=== PATIENT | male | born 1955 | race Caucasian/White ===

== ENCOUNTER 2018-09-03 06:38 | Day surgery (SDC) | payer OTHER ==
[~2018-09-03] VITALS: Ht 182.9 cm; Wt 110.5 kg
[~2018-09-03 06:38] MED LIST: ALPR.25 PO; CYAN500 PO; EXCEDRIN MIGRAINE PO; FISH OIL PO; FURO40 PO; Flonase 0.05% N16 GM; IBUP600 PO; K-TAB ER20 MEQ PO; LIDO700A20 TOP; Prinivil10 MG PO; Robaxin750 MG PO; Silvadene20 GM TOP; THIAMINE PO; VITAMIN B-6 PO
--- NOTE | 2018-09-03 08:00 | NUR ---
Ambulatory in Day Surgery.REPORTS 8/10 LOW BACK PAIN. History, Chart, Medications and Allergies reviewed before start of procedure.Lungs clear T/O to Auscultation. Patient confirms NPO status and agrees with scheduled surgery. Patient reports completing Chlorhexadine shower X2 prior to admission to hospital.Surgical site prepped with 2% Chlorhexidine cloth wipe. Patient States Post-Procedure ride home has been arranged.
--- NOTE | 2018-09-03 09:33 | NUR ---
09/03/18 0933 Jordan Birch PATIENT POSITIONED PRONE, CUSHIONED WITH PILLOWS AND GEL PADS, OVERSEEN BY DR FULLER NO ANTIBIOTICS NEEDED
--- NOTE | 2018-09-03 10:45 | NUR ---
"BUTTON CUTTER | PAIN DECREASING PATIENT STATED PAIN IN LOWER BACK, OFFERED REPOSITIONING AND PATIENT STATED THAT THE PAIN WAS GETTING BETTER AFTER SITTING UP THE GURNEY. DENIES NAUSEA."
--- NOTE | 2018-09-03 11:45 | NUR ---
Patient up to Ambulate independently. Gait steady. Discharge instructions reviewed with patient. Patient verbalizes understanding. Copy given to patient to take home. Patient States Post-Procedure ride home has been arranged. Discharged via wheelchair to private car for ride home. PT GRACIELA RETURNED.
== END 2018-09-03 22:53 | disposition home or self-care (01) ==
LOC: ORSCMMR 06:38 → ORD 08:30 → ORSCMMR 22:53
PROVIDERS: Surgery
PROC: 0JB70ZZ Excision of Back Subcutaneous Tissue and Fascia, Open Approach (ICD-10-PCS; principal; 2018-09-03 08:30)
DX: D17.1 Benign lipomatous neoplasm of skin and subcutaneous tissue of trunk (principal); I10 Essential (primary) hypertension; Z86.718 Personal history of other venous thrombosis and embolism; Z79.899 Other long term (current) drug therapy
CPT/HCPCS: 88304; A9270-GY; J1100; J1885; J2250; J2405; J2704; J3010; J7120

== ENCOUNTER 2019-12-19 20:28 | Inpatient (IN) | payer OTHER ==
[~2019-12-19] VITALS: Ht 180.3 cm; Wt 112.1 kg
[~2019-12-19 20:28] MED LIST changes: +AMIT25 PO; +HYDACE10B PO; +METPRE4DP PO; +NAPR500 PO; +OMEP20ER PO; +Percocet 5-3251 EACH PO; +Robaxin-750750 MG PO; +SIME80CH PO; +Voltaren100 GM TOP
[2019-12-19 23:04] LABS: BASOPHILS PERCENT AUTO 1 % (0-2); EOSINOPHILS ABSOLUTE AUTO 0.36 K/mm3 (0.00-0.68); EOSINOPHILS PERCENT AUTO 3 % (0-6); Hematocrit 36.7 % (37.0-53.0); Hemoglobin 11.9 g/dL (13.5-17.5); IMMATURE GRAN ABSOLUTE AUTO 0.35 K/mm3 (0.00-0.10); IMMATURE GRAN PERCENT AUTO 3 % (0-1); LYMPHOCYTES ABSOLUTE AUTO 2.64 K/mm3 (0.84-5.20); LYMPHOCYTES PERCENT AUTO 22 % (21-46); MONOCYTES ABSOLUTE AUTO 0.96 K/mm3 (0.16-1.47); MONOCYTES PERCENT AUTO 8 % (4-13); Mean Corpuscular HGB 30.4 pg (26.0-34.0); Mean Corpuscular HGB Conc 32.4 g/dL (31.5-36.5); Mean Corpuscular Volume 94 fL (80-100); Mean Platelet Volume 9.4 fL (9.1-12.4); NEUTROPHILS ABSOLUTE AUTO 7.53 K/mm3 (1.96-9.15); NEUTROPHILS PERCENT AUTO 63 % (41-73); NRBC ABSOLUTE 0.03 K/mm3 (0.00-0.02); NRBC Auto 0.3 /100 WBC (0.0-0.2); Platelet Count 279 K/mm3 (150-400); RDW Coefficient Variation 12.5 % (11.7-14.2); RDW Standard Deviation 42.9 fL (35.1-46.3); Red Blood Cell Count 3.91 M/mm3 (4.30-5.90); White Blood Cell Count 11.94 K/mm3 (4.00-11.30)
[2019-12-19 23:19] LABS: International Normalized Ratio 0.97; Prothrombin Time Results 10.4 Sec (9.7-11.5)
[2019-12-19 23:22] LABS: Alanine Aminotransfer (ALT/SGP 17 U/L (12-78); Albumin, Blood 3.2 g/dL (3.4-5.0); Albumin/Globulin Ratio 0.8 (0.8-1.8); Alk Phos 86 U/L (50-136); Anion Gap 6 mmol/L (6-16); Aspartate Aminotrans (AST/SGOT 13 U/L (12-37); Bilirubin, Total 0.4 mg/dL (0.1-1.0); Blood Urea Nitrogen 27 mg/dL (8-24); Bun/Creatinine Ratio 41.2 (12.0-20.0); CO2, Blood 24 mmol/L (21-32); Calcium, Blood 9.3 mg/dL (8.5-10.1); Chloride, Blood 109 mmol/L (98-108); Creatinine, Blood 0.66 mg/dL (0.60-1.20); Globulin, Blood 4.2 g/dL (2.2-4.0); Glomerular Filtration Rate >60 (60-); Glucose, Blood 107 mg/dL (70-99); Potassium, Blood 4.3 mmol/L (3.5-5.5); Sodium, Blood 139 mmol/L (136-145); Total Protein, Blood 7.4 g/dL (6.4-8.2)
[2019-12-20] MEDS ORDERED: Robaxin750 MG PO (01:02)
--- NOTE | 2019-12-20 01:57 | NUR ---
PAIN PT REPORTING 9/10 SHARP PAIN IN LUMBAR/BILAT LEGS UPON ARRIVING TO FLOOR. GAVE 50MCG FENT PER ORDERS. 1 HR LATER PT STATES PAIN MEDICATION HAS NOT TOUCH HIS PAIN. NOTIFIED DR LEO & HE ORDERED 1-2MG IV DILAUDID Q6P. WILL MEDICATE & CONT TO MONITOR.
--- NOTE | 2019-12-20 06:29 | NUR ---
SHIFT SUMMARY AOX4. VSS, BP SLIGHTLY ELEVATED UPON ARRIVAL TO FLOOR-PT WAS IN PAIN @THIS TIME. REPORTS 8-10/10 SHARP PAIN IN LUMBAR & BILAT LEGS FROM THIGHS DOWN. MEDICATED 1X c 50MCG FENT-NO RELIEF, MEDICATED 2X c 1MG DILAUDID & PT HAD MILD RELIEF FROM PAIN. ADMITTED FOR MULTIPLE DVTS IN BLE. ON HEP DRIP @15U/KG/HR. RLE HAS +2 EDEMA, LLE HAS +3 EDEMA. SKIN IS TIGHT, SHINY, SLIGHTLY RED. LLE PULSES 1-WEAK/THREADY, RLE PULSE STRONG. CAP REFILL >3. PT REPORTS NUMBNESS IN BLE. DENIES N/V OR DYSPNEA. TELE NSR @69. CALL LIGHT IN REACH.
[2019-12-20 07:11] LABS: BASOPHILS ABSOLUTE AUTO 0.11 K/mm3 (0.00-0.23); BASOPHILS PERCENT AUTO 1 % (0-2); EOSINOPHILS ABSOLUTE AUTO 0.45 K/mm3 (0.00-0.68); EOSINOPHILS PERCENT AUTO 4 % (0-6); Hematocrit 32.6 % (37.0-53.0); Hemoglobin 10.6 g/dL (13.5-17.5); IMMATURE GRAN ABSOLUTE AUTO 0.28 K/mm3 (0.00-0.10); IMMATURE GRAN PERCENT AUTO 3 % (0-1); LYMPHOCYTES ABSOLUTE AUTO 2.99 K/mm3 (0.84-5.20); LYMPHOCYTES PERCENT AUTO 27 % (21-46); MONOCYTES ABSOLUTE AUTO 0.92 K/mm3 (0.16-1.47); MONOCYTES PERCENT AUTO 8 % (4-13); Mean Corpuscular HGB 30.7 pg (26.0-34.0); Mean Corpuscular HGB Conc 32.5 g/dL (31.5-36.5); Mean Corpuscular Volume 95 fL (80-100); Mean Platelet Volume 9.3 fL (9.1-12.4); NEUTROPHILS ABSOLUTE AUTO 6.25 K/mm3 (1.96-9.15); NEUTROPHILS PERCENT AUTO 57 % (41-73); NRBC ABSOLUTE 0.04 K/mm3 (0.00-0.02); NRBC Auto 0.4 /100 WBC (0.0-0.2); Platelet Count 243 K/mm3 (150-400); RDW Coefficient Variation 12.6 % (11.7-14.2); RDW Standard Deviation 43.6 fL (35.1-46.3); Red Blood Cell Count 3.45 M/mm3 (4.30-5.90)
[2019-12-20 07:30] LABS: Alanine Aminotransfer (ALT/SGP 15 U/L (12-78); Albumin, Blood 2.8 g/dL (3.4-5.0); Albumin/Globulin Ratio 0.8 (0.8-1.8); Alk Phos 75 U/L (50-136); Anion Gap 4 mmol/L (6-16); Aspartate Aminotrans (AST/SGOT 13 U/L (12-37); Bilirubin, Total 0.5 mg/dL (0.1-1.0); Blood Urea Nitrogen 22 mg/dL (8-24); Bun/Creatinine Ratio 36.1 (12.0-20.0); CO2, Blood 27 mmol/L (21-32); Calcium, Blood 8.9 mg/dL (8.5-10.1); Chloride, Blood 108 mmol/L (98-108); Creatinine, Blood 0.61 mg/dL (0.60-1.20); Globulin, Blood 3.7 g/dL (2.2-4.0); Glomerular Filtration Rate >60 (60-); Glucose, Blood 96 mg/dL (70-99); Potassium, Blood 3.8 mmol/L (3.5-5.5); Sodium, Blood 139 mmol/L (136-145); Total Protein, Blood 6.5 g/dL (6.4-8.2)
--- NOTE | 2019-12-20 16:27 | NUR ---
ALERT. ORIENTED. UNLABORED RESPIRATIONS. ONE PERSON STANDBY ASSIST. WAS IN TO SEE AND WILL BE HAVING SURGERY TOMORROW, SO NPO AFTER MIDNITE W/PATIENT AWARE. SIGNED CONSENT. MEDICATED FOR BACK AND LEG PAIN W/GOOD RESULTS. HAS HX CHRONIC BACK PAIN. BLE EDEMA W/L>R. HEPARIN INFUSING. TELE ON PER [employer] SR IN 'S. TM
--- NOTE | 2019-12-21 06:43 | NUR ---
SHIFT SUMMARY AOX4. VSS. TELE NSR. DENIES N/V OR DYSPNEA. REPORTS 8-9/10 PAIN IN BILAT LEGS, MEDICATED 1X c 2MG IV DILAUDID & 1X c PERCOCET PER ORDERS-PT STATES RELIEF. L THIGH IS MORE PAINFUL, SWOLLEN THEN RIGHT. L CAP REFILL @4 SEC, R CAP REFILL <3. PULSE WEAK IN L PEDAL, R PEDAL PULSE STRONG. REPORTS NUMBNESS BLE. PLAN FOR PROCEDURE TODAY TO REMOVE DVTS, HAS BEEN NPO SINCE MIDNIGHT. HEP DRIP INCREASED TO 19U/KG/HR. CALL LIGHT IN REACH.
--- NOTE | 2019-12-21 16:56 | NUR ---
ALERT. ORIENTED. MEDICATED FOR BACK AND LEG PAIN W/GOOD RESULTS. KIMBERLY LE EDEMA W/LT >RT. NPO SINCE MIDNITE EXCEPT FOR MEDS . UNLABORED RESPIRATIONS. PLEASANT COOPERATIVE. ABLE TO MAKE NEEDS KNOWN. IN W/C TO [facility] W/ GOING.
--- NOTE | 2019-12-21 18:37 | NUR ---
PATIENT WILL GO TO PCU 11 POST PROCEDURE. REPORT GIVEN TO PERFUME COMPOUNDER
--- NOTE | 2019-12-21 19:37 | NUR ---
PT ARRIVED IN THE UNIT FROM ELECTRICAL MAINTENANCE MECHANIC, PT IS HERE POST BILAT DVT'S POST THROMBECTOMY. VITALS HRR SINUS 80'S, BP SYSTOLIC 160-180'S, SATS ABOVE 95% ON 2L OF O2, AFEBRILE. PT HAS BILAT POPLITEAL SITES DRESSING CDI NO HEMATOMA NOTED AROUND THE SITE, PEDAL PULSES PRESENT, 2+ PITTING EDEMA. PT WITH NO COMPLAINTS AT THIS TIME, REPORT GIVEN TO ONCOMING NURSE EDITH LORENZO
[2019-12-21 23:40] LABS: Hematocrit 31.9 % (37.0-53.0); Hemoglobin 10.8 g/dL (13.5-17.5)
--- NOTE | 2019-12-21 23:49 | NUR ---
FEDERICO NOTIFIED NOTIFIED OF SATURATED DRSG'S BILAT. PT IS CURRENTLY ON HEP GTT & CONTINUES TO HAVE HEMATURIA. STAT H&H WAS DRAWN, PT REMAINS ASYMPTOMATIC, NO C/O PAIN, CIRC WNL, BILATERAL PEDAL PULSE INTACT. PRESSURE DRSG'S WERE ORDERED AT THIS TIME, DRSG'S APPLIED. CHARGE NURSE AT BEDSIDE TO ASSIST.
[2019-12-22 04:08] LABS: Hematocrit 33.6 % (37.0-53.0); Hemoglobin 10.8 g/dL (13.5-17.5)
--- NOTE | 2019-12-22 04:11 | NUR ---
DRSG'S PT REPOSITIONED AT THIS TIME, LEGS REMAIN STRAIGHT, PRESSURE DRSG'S C/D/I, INCREASED SWELLING NOTED TO BILAT LEGS, LARISSA WRAPS CHECKED, CIRC WNL, ABLE TO PUT 1-2 FINGERS IN ALL SPACES WITH NO PROBLEMS, PT DENIES PAIN, NUMBNESS OR TINGLING TO EXTREMITIES, LEGS ELEVATED AT THIS TIME.
--- NOTE | 2019-12-22 05:25 | NUR ---
FEDERICO NOTIFIED NOTIFIED OF HEMATURIA. PT HAS A TOTAL OF 275 ML'S OF DARK RED URINE, HE DENIES PAIN/PRESSURE TO HIS BLADDER. PT STATES HE HAS NEVER HAD ANY PROBLEMS WITH URINATION, VSS AT THIS TIME. ENC PO INTAKE OF FLUIDS TO HELP FLUSH THE PT'S SYSTEM IN HOPES THAT THE HEMATURIA IS FROM THE PROCEDURE. 1 1,000 ML BAG OF NS WAS ALSO ORDERED & STARTED @ 100 ML/HR, H&H IN THE AM AND A STAT H&H IF BLEEDING CONTINUES OR WORSENS.
--- NOTE | 2019-12-22 05:42 | NUR ---
SUMMARY PT REMAINS A&O AT THIS TIME, HE IS RESTING QUIETLY, LEGS SLIGHTLY ELEVATED IN BED, PRESSURE DRSG'S ARE C/D/I, CIRC WNL, CAP REFILL LESS THAN 3 SEC, PT DENIES N/T, H&H THIS AM 10.8 & 33.6. VSS, ON ROOM AIR, HEPARIN GTT INFUSING PER EMAR, NS @ 100 ML/HR, PT HAS TOLERATED PO INTAKE, HEMATURIA CONTINUES. WILL REPORT TO ONCOMING RN, CALL LIGHT IN REACH.
[2019-12-22 09:35] LABS: Mean Platelet Volume 9.8 fL (9.1-12.4); Platelet Count 325 K/mm3 (150-400)
[2019-12-22] MEDS ORDERED: XARELTO15 M1 PO (11:25)
[2019-12-22] MEDS ORDERED: XARELTO20 MG PO (11:26)
--- NOTE | 2019-12-22 14:05 | NUR ---
PT DISCHARGED TO HOME WITH DISCHARGED ORDERS. BILAT POPLITEAL SITES WITH CLEAR DRESSINGS REMAINED INTACT NO HEMATOMA/BLEEDING AROUND THE SITE, SWELLING DECREASED PT STARTED ON XARELTO 15MG PO. PAIN MEDS GIVEN X1. NO OTHER ISSUES ENCOUNTERED FOR THE SHIFT, PRESCRIPTION SENT TO [facility]. PT TO FOLLOW UP IN A MONTH WITH DR CABALLERO. ALL BELONGINGS SENT WITH PT, INSTRUCTIONS AND NEW MEDICATIONS DISCLOSED WITH PT AND AT BEDSIDE. PT ACCOMPANIED VIA WHEELCHAIR FOR TRANSPORT
== END 2019-12-22 13:54 | disposition home or self-care (01) | DRG 271 ==
LOC: ER 20:28 → MEDS 20:29 → PCU 12-21 16:55
PROVIDERS: Emergency Medicine; Radiology Diagnostic Radiology; ADMIT Internal Medicine
PROC: 06C03ZZ Extirpation of Matter from Inferior Vena Cava, Percutaneous Approach (ICD-10-PCS; principal; 2019-12-21)
PROC: B5191ZZ Fluoroscopy of Inferior Vena Cava using Low Osmolar Contrast (ICD-10-PCS; 2019-12-21)
PROC: B51H1ZZ Fluoroscopy of Bilateral Pelvic (Iliac) Veins using Low Osmolar Contrast (ICD-10-PCS; 2019-12-21)
PROC: B51D1ZZ Fluoroscopy of Bilateral Lower Extremity Veins using Low Osmolar Contrast (ICD-10-PCS; 2019-12-21)
PROC: 3E03317 Introduction of Other Thrombolytic into Peripheral Vein, Percutaneous Approach (ICD-10-PCS; 2019-12-21)
PROC: 06CM3ZZ Extirpation of Matter from Right Femoral Vein, Percutaneous Approach (ICD-10-PCS; 2019-12-21)
PROC: 06CC3ZZ Extirpation of Matter from Right Common Iliac Vein, Percutaneous Approach (ICD-10-PCS; 2019-12-21)
DX: I82.433 Acute embolism and thrombosis of popliteal vein, bilateral (principal); D68.32 Hemorrhagic disorder due to extrinsic circulating anticoagulants; I82.413 Acute embolism and thrombosis of femoral vein, bilateral; I82.493 Acute embolism and thrombosis of other specified deep vein of lower extremity, bilateral; Z86.711 Personal history of pulmonary embolism; I10 Essential (primary) hypertension; M19.90 Unspecified osteoarthritis, unspecified site; Z95.828 Presence of other vascular implants and grafts; R31.9 Hematuria, unspecified; T45.515A Adverse effect of anticoagulants, initial encounter; Y92.230 Patient room in hospital as the place of occurrence of the external cause
CPT/HCPCS: 36005; 36415; 37187; 75822; 75825; 76937; 80053; 85014; 85018; 85025; 85049; 85610; 85730; 93970; 96375; 96376; 99152; 99153; 99285-25; A9270; C1757; C1769; C1887; C1894; G0378; J1170; J1644; J2250; J2997; J3010; J7030; Q9967

== ENCOUNTER 2021-02-21 10:26 | Day surgery (SDC) | payer OTHER ==
[~2021-02-21] VITALS: Ht 180.3 cm; Wt 109.0 kg
[~2021-02-21 10:26] MED LIST changes: +ALBU2.5V5 INH; +FLOVENT HFA12 GM INH; +K-TAB ER20 ME1 PO; +MELO7.5 PO; +Norco 5-325 Ta1 EACH PO; +XARELTO15 M1 PO; +XARELTO20 MG PO
[2021-02-21] MEDS ORDERED: LIDO700A20 TOP (10:58)
--- NOTE | 2021-02-21 14:42 | NUR ---
FLOWSTASIS REMOVED AND CLOTH DOT DRESSING APPLIED TO R POPITEAL VEIN ACCESS SITE. PT STARTED TO DRESS SELF WHEN SITE BEGAN TO BLEED. PT LAID FACE DOWN ON BED AND MANUAL PRESSURE WAS HELD TO SITE [id number]. BLEEDING STOPPED AFTER 10MINS. NEW CLOTH DOT DRESSING APPLIED AND SMALL PRESSURE DRESSING APPLIED TO SITE. PT ADVISED TO REMOVED WHEN HE GOT HOME. PT STATES HIS UNDERSTANDING AND WILL REMOVE DRESSING WHEN HE IS HOME. PT ALSO STATES HIS UNDERSTANDING OF DC AND SITE CARE INSTRUCTIONS AND DENIES ANY QUESTIONS OR CONCERNS. IV DCD WITH CATH INTACT. VSS. PT TAKEN TO EXIT VIA WHEELCHAIR WHERE WAS WAITING WITH CAR.
== END 2021-02-21 14:30 | disposition home or self-care (01) ==
LOC: MHTC 10:26
DX: I82.491 Acute embolism and thrombosis of other specified deep vein of right lower extremity (principal); I82.591 Chronic embolism and thrombosis of other specified deep vein of right lower extremity; I87.009 Postthrombotic syndrome without complications of unspecified extremity; I10 Essential (primary) hypertension; Z88.5 Allergy status to narcotic agent; Z88.8 Allergy status to other drugs, medicaments and biological substances; Z79.899 Other long term (current) drug therapy
CPT/HCPCS: 76937; 85347; 99152; 99153; C1725; C1753; C1757; C1769; C1876; C1887; C1894; J1644; J2250; J3010; J7030; Q9967

== ENCOUNTER 2021-05-02 08:26 | Day surgery (SDC) | payer OTHER ==
[~2021-05-02] VITALS: Ht 180.3 cm; Wt 111.0 kg
[~2021-05-02 08:26] MED LIST changes: +CARV3.125 PO; +ELIQUIS5 M2 PO; +HYDMOR2 PO; +ROPI1 PO
== END 2021-05-02 16:05 | disposition home or self-care (01) ==
LOC: MHTC 08:26
DX: I82.511 Chronic embolism and thrombosis of right femoral vein (principal); M79.604 Pain in right leg; I87.009 Postthrombotic syndrome without complications of unspecified extremity; R60.0 Localized edema; I10 Essential (primary) hypertension; Z79.01 Long term (current) use of anticoagulants; Z88.5 Allergy status to narcotic agent; Z88.8 Allergy status to other drugs, medicaments and biological substances
CPT/HCPCS: 85347; 99152; 99153; C1724; C1725; C1757; C1769; C1887; C1894; J1644; J2250; J3010; J7030; J7050; Q9967

== ENCOUNTER 2022-07-23 06:56 | Day surgery (SDC) | payer OTHER ==
[~2022-07-23] VITALS: Ht 177.8 cm; Wt 114.0 kg
[2022-07-23] VITALS (10 sets, daily range): BP systolic 137–198; BP diastolic 65–90
[~2022-07-23 06:56] MED LIST changes: +1/2 NS 250ml250 ML; +Bisoprolol Fumar5 MG PO; +CALCIUM CIT 311 EAC7 PO; +Garlic500 MG PO; +Ginger250 MG PO; +HORSE CHESTNUT PO; +MULTIVITAMIN; +TIOT18 INH; +VITAMIN B122500 MC1 PO
--- NOTE | 2022-07-23 10:20 | NUR ---
ASSUMED CARE OF PT POST PROCEDURE. PT AWAKE AND COMVERSING APPROPRIATELY, DENIES PAIN POST PROCEDURE. MONITOR SB 40'S, B/P 161/75, SPO2 98% RA, AFEBRILE. R IJ ACCESS SITE NO SWELLING/HEMATOMA, ABA AND TEGADERM DRSG INTACT.
--- NOTE | 2022-07-23 11:45 | NUR ---
PATIENT AMBULATING TO RESTROOM WITHOUT DIFFICULTY. R JUGULAR DRESSING C/D/I, NO EVIDENCE OF BLEEDING. PATIENT DENYING ANY PAIN. VSS ON ROOM AIR.
--- NOTE | 2022-07-23 12:00 | NUR ---
DISCHARGE INSTRUCTIONS REVIEWED WITH PATIENT. NO CHANGES TO MEDICATIONS. ALL QUESTIONS WERE ANSWERED. R JUGULAR DRESSING C/D/I, NO EVIDENCE OF BLEEDING. VSS ON ROOM AIR. PIV REMOVED WITHOUT DIFFICULTY, CATHETER INTACT.
--- NOTE | 2022-07-23 12:12 | NUR ---
PATIENT DISCHARGED HOME AT THIS TIME. DISCHARGE VOLUNTEER ABLE TO WHEEL PATIENT TO HOSPITAL ENTRANCE. PATIENT'S SPOUSE, DANIELE ABLE TO TRANSPORT PATIENT HOME. R JUGULAR SITE C/D/I. NO EVIDENCE OF BLEEDING.
== END 2022-07-23 12:03 | disposition home or self-care (01) ==
LOC: MHTC 06:56
DX: I82.591 Chronic embolism and thrombosis of other specified deep vein of right lower extremity (principal); I87.2 Venous insufficiency (chronic) (peripheral); I10 Essential (primary) hypertension; E78.5 Hyperlipidemia, unspecified
CPT/HCPCS: 37248; 75822; 75825; 76937; 77001; 99152; 99153; C1725; C1769; C1887; C1894; J1644; J2250; J3010; J7030; J7050; Q9967

== ENCOUNTER 2024-12-16 09:01 | Day surgery (SDC) | payer OTHER ==
[~2024-12-16 09:01] MED LIST changes: +Bisoprolol Fumar5 MG
== END 2024-12-16 23:00 | disposition home or self-care (01) ==
LOC: CT 09:01 → MHTC 09:01 → CT 23:00
DX: I25.10 Atherosclerotic heart disease of native coronary artery without angina pectoris (principal); I10 Essential (primary) hypertension; E78.5 Hyperlipidemia, unspecified; J44.9 Chronic obstructive pulmonary disease, unspecified; K21.9 Gastro-esophageal reflux disease without esophagitis; Z79.01 Long term (current) use of anticoagulants; Z79.899 Other long term (current) drug therapy; Z88.5 Allergy status to narcotic agent; Z88.6 Allergy status to analgesic agent; Z88.8 Allergy status to other drugs, medicaments and biological substances; Z86.718 Personal history of other venous thrombosis and embolism
CPT/HCPCS: 75574; Q9967